=== PATIENT | male | born 1955 | race Caucasian/White ===

== ENCOUNTER 2022-08-31 10:02 | Emergency (ER) | payer OTHER, BC ==
[2022-08-31 10:11] VITALS: BP 141/90; PULSE 104; RESP 18; TEMP 97.6; BMI 31.1
[2022-08-31] MEDS ORDERED: ASPIRIN 81 MG CHEWABLE TABLETS PO ONE (11:31)
[2022-08-31] MEDS ORDERED: ASPIRIN 325 MG TABLET ONE (11:32)
[2022-08-31 12:45] LABS: BASO % 0.5 % (0-2.0); EOS % 1.1 % (0-4.5); HEMATOCRIT 44.7 % (35.4-49); HEMOGLOBIN 14.8 GM/dL (11.7-16.9); LYMPH % 18.6 % (8-40); MCHC 33.1 g/dl (32.0-35.9); MEAN CELL VOLUME 90.7 fl (80-96); MEAN PLT VOLUME 10.3 fl (7.5-11.1); MONO % 9.4 % (3.8-10.2); NEUT % 70.4 % (42.8-82.8); PLATELET COUNT 252 10^3/uL (134-434); RBC 4.92 M/mm3 (4.00-5.60); RDW 13.5 % (11.9-15.9); WHITE BLOOD COUNT 8.7 K/mm3 (4.0-10.0)
[2022-08-31 12:50] LABS: INR 1.09 (0.83-1.09); PROTHROMBIN TIME (PATIENT) 12.5 SEC (9.7-13.0)
[2022-08-31 12:53] LABS: ACTIVATED PTT 29.4 SECONDS (25.2-36.5)
[2022-08-31 13:19] LABS: CALCIUM 8.7 mg/dL (8.5-10.1)
[2022-08-31 13:20] LABS: ALBUMIN 3.1 g/dl (3.4-5.0); BLOOD UREA NITROGEN 15.2 mg/dL (7-18); MAGNESIUM 1.8 mg/dL (1.8-2.4)
[2022-08-31 13:22] LABS: CREATININE 0.9 mg/dL (0.55-1.3)
[2022-08-31 13:25] LABS: BILIRUBIN,TOTAL 0.4 mg/dL (0.2-1); TOT PROT 6.2 g/dl (6.4-8.2)
== END 2022-08-31 13:52 | disposition home or self-care (01) ==
LOC: JERFT 10:02 → JER 10:02 → JERFT 13:52
DX: M62.830 Muscle spasm of back (principal); M25.512 Pain in left shoulder
CPT/HCPCS: 36415; 71046-TC-FY; 73030-TC-LT-FY; 80053; 82550; 83735; 83880; 84484; 85025; 85610; 85730; 93005; 93010; 99285-25

== ENCOUNTER 2022-09-04 11:47 | Inpatient (IN) | payer OTHER, BC ==
[2022-09-04 14:43] LABS: EPI CELLS 6 /uL (0-25.1); HYALINE CASTS 2 /uL (0-3.1); PH,URINE 5.5 (5.0-8.0); URINE APPEARANCE CLEAR; URINE BACTERIA 1 /uL (0-1359); URINE BILIRUBIN 1+ (NEGATIVE); URINE COLOR DK YELLOW; URINE GLUCOSE (UA) NEGATIVE (NEGATIVE); URINE KETONE TRACE (NEGATIVE); URINE LEUK ESTERASE NEGATIVE (NEGATIVE); URINE NITRITE NEGATIVE (NEGATIVE); URINE PROTEIN 1+ (NEGATIVE); URINE RBC 25 /uL (0-23.9); URINE WBC 8 /uL (0-25.8)
[2022-09-04 15:19] LABS: BASO % 0.9 % (0-2.0); EOS % 0.9 % (0-4.5); HEMOGLOBIN 14.6 GM/dL (11.7-16.9); LYMPH % 19.1 % (8-40); MCH 30.4 pg (25.7-33.7); MCHC 33.9 g/dl (32.0-35.9); MEAN CELL VOLUME 89.6 fl (80-96); MEAN PLT VOLUME 9.7 fl (7.5-11.1); MONO % 10.3 % (3.8-10.2); NEUT % 68.8 % (42.8-82.8); PLATELET COUNT 260 10^3/uL (134-434); RDW 13.2 % (11.9-15.9); WHITE BLOOD COUNT 9.8 K/mm3 (4.0-10.0)
[2022-09-04 15:44] LABS: CALCIUM 8.7 mg/dL (8.5-10.1)
[2022-09-04 15:45] LABS: ALBUMIN 2.9 g/dl (3.4-5.0)
[2022-09-04 15:48] LABS: CREATININE 1.1 mg/dL (0.55-1.3)
[2022-09-04 15:50] LABS: BILIRUBIN,TOTAL 0.4 mg/dL (0.2-1); TOT PROT 6.2 g/dl (6.4-8.2)
[2022-09-05] MEDS ORDERED: TAMSULOSIN HCL 0.4 MG CAP PO ONE ×2 (00:12→02:30)
[2022-09-05] MEDS ORDERED: CARVEDILOL 3.125 MG TABLET (FP) PO ONE ×2 (00:14→02:30)
[2022-09-05] MEDS ORDERED: CARVEDILOL 6.25 MG TABLET (FP) PO ONE (00:15)
[2022-09-05] MEDS ORDERED: ATORVASTATIN CA 40 MG TABLET (FP) PO ONE (00:16)
[2022-09-05] MEDS ORDERED: ACETAMINOPHEN 325 MG TABLET (FP) PO PRN (00:39)
[2022-09-05] MEDS ORDERED: ACETAMINOPHEN 1000 MG/100 ML BAG IVPB PRN (00:47)
[2022-09-05] MEDS: APIXABAN 5 MG TABLET PO SCH ×2 (02:19→05:03)
[2022-09-05] MEDS ORDERED: METHOCARBAMOL 500 MG TABLET PO ONE (02:35)
[2022-09-05] MEDS: MELATONIN 5 MG TABLETS PO PRN ×2 (03:09→21:22)
[2022-09-05 04:34] VITALS: BMI 32.1
[2022-09-05] MEDS: INSULIN SLIDING SCALE (NOVOLOG) 1 VIAL SQ SCH ×4 (07:56→22:05)
[2022-09-05] MEDS ORDERED: MAGNESIUM 1GM/D5W 100ML - 100 ML IVPB IVPB ONE (08:30)
[2022-09-05] MEDS ORDERED: TAMSULOSIN HCL 0.4 MG CAP PO SCH (08:30)
[2022-09-05 08:50] LABS: BASO % 0.6 % (0-2.0); EOS % 1.5 % (0-4.5); HEMATOCRIT 41.8 % (35.4-49); HEMOGLOBIN 13.8 GM/dL (11.7-16.9); LYMPH % 22.4 % (8-40); MCH 29.6 pg (25.7-33.7); MCHC 33.1 g/dl (32.0-35.9); MEAN CELL VOLUME 89.5 fl (80-96); MEAN PLT VOLUME 10.1 fl (7.5-11.1); MONO % 9.6 % (3.8-10.2); NEUT % 65.9 % (42.8-82.8); PLATELET COUNT 247 10^3/uL (134-434); RBC 4.66 M/mm3 (4.00-5.60); RDW 13.3 % (11.9-15.9); WHITE BLOOD COUNT 7.7 K/mm3 (4.0-10.0)
[2022-09-05 08:54] LABS: CALCIUM 8.3 mg/dL (8.5-10.1)
[2022-09-05 08:55] LABS: BLOOD UREA NITROGEN 19.5 mg/dL (7-18)
[2022-09-05] MEDS ORDERED: APIXABAN 5 MG TABLET PO SCH (10:00)
[2022-09-05] MEDS ORDERED: CARVEDILOL 6.25 MG TABLET (FP) PO SCH (10:00)
[2022-09-05] MEDS: LOSARTAN POTASSIUM 50 MG TABLET PO SCH (10:07)
[2022-09-05] MEDS: ASPIRIN 81 MG CHEWABLE TABLETS PO SCH (10:07)
[2022-09-05] MEDS: DULoxetine HCL 30 MG CAPSULE.DR PO SCH (10:07)
[2022-09-05] MEDS: CARVEDILOL 6.25 MG TABLET (FP) PO SCH ×2 (10:08→21:22)
[2022-09-05] MEDS: TAMSULOSIN HCL 0.4 MG CAP PO SCH (10:08)
[2022-09-05] MEDS: ATORVASTATIN CA 40 MG TABLET (FP) PO SCH (21:21)
[2022-09-06] MEDS ORDERED: MELATONIN 5 MG TABLETS PO PRN (00:12)
[2022-09-06] MEDS ORDERED: METHOCARBAMOL 750 MG TABLET PO ONE (00:12)
[2022-09-06] MEDS: INSULIN SLIDING SCALE (NOVOLOG) 1 VIAL SQ SCH ×4 (06:31→21:18)
[2022-09-06] MEDS: DULoxetine HCL 30 MG CAPSULE.DR PO SCH (09:16)
[2022-09-06] MEDS: LOSARTAN POTASSIUM 50 MG TABLET PO SCH (09:16)
[2022-09-06] MEDS: TAMSULOSIN HCL 0.4 MG CAP PO SCH (09:17)
[2022-09-06] MEDS: ASPIRIN 81 MG CHEWABLE TABLETS PO SCH (09:17)
[2022-09-06] MEDS: CARVEDILOL 6.25 MG TABLET (FP) PO SCH ×2 (09:17→21:15)
[2022-09-06 10:03] LABS: MAGNESIUM 1.7 mg/dL (1.8-2.4); PHOSPHOROUS 3.7 mg/dL (2.5-4.9)
[2022-09-06] MEDS ORDERED: MAGNESIUM 2GM/50ML STERILE WATER IVPB IVPB ONE (16:55)
[2022-09-06 18:00] LABS: INR 1.12 (0.83-1.09); PROTHROMBIN TIME (PATIENT) 12.9 SEC (9.7-13.0)
[2022-09-06 18:01] LABS: ACTIVATED PTT 28.5 SECONDS (25.2-36.5)
[2022-09-06] MEDS: MELATONIN 5 MG TABLETS PO PRN (21:14)
[2022-09-06] MEDS: ATORVASTATIN CA 40 MG TABLET (FP) PO SCH (21:15)
[2022-09-06] MEDS ORDERED: METHOCARBAMOL 500 MG TABLET PO ONE (21:33)
[2022-09-06] MEDS ORDERED: ACETAMINOPHEN 1000 MG/100 ML BAG IVPB ONE (21:35)
[2022-09-06] MEDS ORDERED: MELATONIN 1 MG TABLET PO ONE (21:36)
[2022-09-07] MEDS ORDERED: diphenhydrAMINE HCL 25 MG CAPSULE (FP) PO ONE (03:30)
[2022-09-07] MEDS: INSULIN SLIDING SCALE (NOVOLOG) 1 VIAL SQ SCH ×2 (06:14→11:44)
[2022-09-07] MEDS ORDERED: metFORMIN HCL 500 MG TABLET (FP) PO SCH (07:00)
[2022-09-07] MEDS: ASPIRIN 81 MG CHEWABLE TABLETS PO SCH (09:34)
[2022-09-07] MEDS: TAMSULOSIN HCL 0.4 MG CAP PO SCH (09:34)
[2022-09-07] MEDS: LOSARTAN POTASSIUM 50 MG TABLET PO SCH (09:34)
[2022-09-07] MEDS: DULoxetine HCL 30 MG CAPSULE.DR PO SCH (09:34)
[2022-09-07] MEDS: CARVEDILOL 6.25 MG TABLET (FP) PO SCH (09:34)
[2022-09-07 09:41] VITALS: BP 130/76; PULSE 76; RESP 18; TEMP 98
== END 2022-09-07 13:41 | disposition home or self-care (01) | DRG 66 ==
LOC: JER 11:47 → JERBED 18:32 → J8W 20:29 → J4W 09-05 05:57
PROVIDERS: ADMIT Internal Medicine; ATTEND Family Medicine
DX: I63.9 Cerebral infarction, unspecified (principal); I25.10 Atherosclerotic heart disease of native coronary artery without angina pectoris; I10 Essential (primary) hypertension; E11.9 Type 2 diabetes mellitus without complications; M75.52 Bursitis of left shoulder; R47.01 Aphasia; Z95.5 Presence of coronary angioplasty implant and graft; R29.705 NIHSS score 5; E78.5 Hyperlipidemia, unspecified; E83.42 Hypomagnesemia; N40.0 Benign prostatic hyperplasia without lower urinary tract symptoms
CPT/HCPCS: 0241U-QW; 36415; 70450-TC; 70551-TC; 71045-TC-FY; 80048; 80053; 80061; 81003; 82085; 82550; 82607; 82962; 83036; 83090; 83516; 83735; 83874; 84100; 84443; 84484; 85025; 85610; 85730; 86140; 87086; 93005; 93010; 93306-TC; 93880-TC; 97116-GP; 97162-GP; 99285-25